=== PATIENT | male | born 1975 | race Caucasian/White ===

== ENCOUNTER 2017-01-31 15:57 | Outpatient (CLI) ==
[2016-05-05 09:22] VITALS: BMI 21.7
--- NOTE | 2017-01-31 16:28 | DI ---
EXAM: Cervical spine radiographs. HISTORY: Neck pain. COMPARISON: 12/06/2016. TECHNIQUE: Frontal, lateral and odontoid views. FINDINGS: There is straightening of the normal lordosis. Otherwise, there is normal curvature and alignment are maintained. Vertebral body and intervertebral disc heights are normal. Mild endplate osteophyte formation, uncovertebral hypertrophy and facet arthropathy noted. No fracture or sublux ation is seen. Prevertebral soft tissues are unremarkable. Since the prior study, there has been no significant interval change. IMPRESSION: Mild multilevel degenerative changes.
--- NOTE | 2017-01-31 16:30 | DI ---
EXAM: Lumbar spine radiographs. HISTORY: Low back pain. Left sciatica. COMPARISON: 09/02/2009. TECHNIQUE: Three views of the lumbar spine. FINDINGS: The normal curvature and alignment are maintained. Vertebral body and intervertebral dis c heights are normal. No fracture or subluxation identified. Sacral arcuate lines are intact. Sof t tissues are unremarkable. Cholecystectomy clips noted. IMPRESSION: No acute abnormality of the lumbar spine.
[2017-01-31 16:40] LABS: BASOPHILS % (AUTO) 0.5 % (0.0-3.0); EOSINOPHILS # (AUTO) 0.1 K/ul (0.0-0.7); EOSINOPHILS % (AUTO) 1.7 % (0.0-7.0); HEMATOCRIT 41.5 % (42.0-52.0); HEMOGLOBIN 14.7 g/dl (14.0-18.0); IMMATURE GRANULOCYTE % (AUTO) 0.2 % (0.0-5.0); LYMPHOCYTES # (AUTO) 1.6 K/uL (0.60-3.4); LYMPHOCYTES % (AUTO) 27.5 (10.0-50.0); MEAN CORPUSCULAR HEMOGLOBIN 32.2 pg (27.0-31.0); MEAN CORPUSCULAR HGB CONC 35.4 (31.8-35.4); MEAN CORPUSCULAR VOLUME 90.8 fl (80.0-94.0); MONOCYTES # (AUTO) 0.5 K/uL (0.4-2.0); NEUTROPHILS # (AUTO) 3.6 K/ul (2.0-6.9); NEUTROPHILS % (AUTO) 62.1; PLATELET COUNT 233 10^3/uL (140-440); RED BLOOD COUNT 4.57 10^6/ul (4.70-6.10); WHITE BLOOD COUNT 5.74 K/ul (4.2-10.2)
[2017-01-31 17:19] LABS: ALBUMIN 4.5 g/dL (3.4-5.0); ALBUMIN/GLOBULIN RATIO 1.45; ANION GAP 20.2; BILIRUBIN,TOTAL 1.49 mg/dL (0.00-1.20); BUN/CREATININE RATIO 12.12; CALCIUM 10.3 mg/dL (8.2-10.2); CHOL/HDL RATIO 3.4 (4.5-6.4); CREATININE 0.99 mg/dL (0.60-1.10); POTASSIUM 4.2 mmol/L (3.5-5.1); TOTAL PROTEIN 7.6 g/dL (6.4-8.2)
== END 2017-01-31 15:58 | disposition home or self-care (01) ==
LOC: LAB 15:57
PROVIDERS: ATTEND Emergency Medicine
DX: M54.2 Cervicalgia (principal); M54.42 Lumbago with sciatica, left side; I10 Essential (primary) hypertension; F19.90 Other psychoactive substance use, unspecified, uncomplicated
CPT/HCPCS: 36415; 80053; 80061; 84443; 85025